=== PATIENT | female | born 1930 | race Caucasian/White ===

== ENCOUNTER → 2016-07-04 | Outpatient (CLI) | payer MEDICARE, BC ==
[2014-03-11 18:36] VITALS: BP 156/75
[~2016-07-04] MED LIST: HYDROCORTISONE20 MG PO; LEVOTHROID0.075 MG PO; LUTEIN20 M1 PO; MASON NATURAL1200 MG PO; NEOMYCIN OD; OMNIPRED 10 ML10 ML OU; POLY B OD; TOPROL XL 25MG25 MG PO; UNICOMPLEX1 CAP PO; VITAMIN D31000 I1 PO; ZOLPIDEM5 MG PO
== END ==
LOC: LAB 08:23
DX: E23.6 Other disorders of pituitary gland (principal); R53.81 Other malaise

== ENCOUNTER 2017-03-11 08:39 | Observation (INO) | payer MEDICARE, BC ==
[2017-03-11] VITALS (7 sets, daily range): BP systolic 128–168; BP diastolic 67–99
[~2017-03-11] VITALS: Ht 157.5 cm; Wt 58.7 kg
[2017-03-11 10:11] LABS: BASO # 0.1 (0.02-0.10); EOS # 0.2 (0.04-0.40); EOS % 0.9 % (1.0-5.0); HEMOGLOBIN 14.1 g/dL (12.5-16.0); LYMPH# 2.2 (1.50-4.00); MEAN CELL VOLUME 87 fl (78-100); MEAN CORPUSCULAR HEMOGLOBIN 28 pg (27-31); MEAN CORPUSCULAR HGB CONC 33 g/dL (33-37); MEAN PLATELET VOLUME 8.7 fl (7.4-10.4); MONO # 0.9 (0.20-0.80); PLATELET COUNT 298 K/mm3 (130-400); RED BLOOD COUNT 4.97 M/mm3 (4.10-5.30); RED CELL DISTRIBUTION WIDTH 13.7 % (11.5-14.5); WHITE BLOOD COUNT 15.8 K/mm3 (4.8-10.8)
[2017-03-11 10:23] LABS: ALBUMIN 3.4 g/dL (3.5-5.0); BUN/CREATININE RATIO 15.9 (6.0-26.0); CALCIUM 9.2 mg/dL (8.4-10.2); POTASSIUM 3.8 mmol/L (3.6-5.0); TOTAL BILIRUBIN 0.6 mg/dL (0.2-1.3); TOTAL PROTEIN 6.3 g/dL (6.3-8.2)
[2017-03-11 10:54] LABS: NEU # 12.3 (1.40-6.50)
[2017-03-11 11:18] LABS: URINE APPEARANCE CLEAR; URINE COLOR YELLOW
[2017-03-11 11:19] LABS: URINE BILIRUBIN NEGATIVE (NEGATIVE); URINE BLOOD NEGATIVE (NEGATIVE); URINE GLUCOSE NEGATIVE (NEGATIVE); URINE KETONE NEGATIVE (NEGATIVE); URINE LEUKOCYTE ESTERASE 1+ (NEGATIVE); URINE MUCUS PRESENT (NOT PRESENT); URINE NITRATE NEGATIVE (NEGATIVE); URINE PROTEIN(semi-quant) NEGATIVE (NEGATIVE); URINE UROBILINOGEN NORMAL (NORMAL)
--- NOTE | 2017-03-11 16:23 | NUR ---
PT FULLY ALERT AND ORIENTED, AMBULATING WITH SBA TO RESTROOM AT THIS TIME, VOIDED 400CC OF CLEAR YELLOW URINE, DENIES DIZZINESS OR LIGHT HEADEDNESS AT THIS TIME, DENIES ANY FURTHER NEEDS
--- NOTE | 2017-03-11 19:10 | NUR ---
Report received from Kinsey ORTEGA. Patient resting supine in bed with bed alarm on. Call light in reach. A/O x4. Denies pain. Denies cough. Denies dizziness now or with getting up. Essentially denies any problems what so ever to this nurse. Assessment completed. States would like Ambien when 2300 V/S are taken. Bed alarm on. Call light in reach.
--- NOTE | 2017-03-11 19:50 | NUR ---
PREVENTIVE MEDICINE OFFICER asks for assist with patient in BR. States patient refusing to change out of street clothing, (jeans and shirt) into a hospital gown and also tried to refuse a gait belt with ambulation. This nurse to BR. Explained to patient reason for gait belt due to patients safety as related to fall prevention. Also asked patient if she slept in her clothing at home and patient stated "no she sleeps in her pajamas. This nurse states "well, since you don't have pajama's here, this is our pajama's, also explained that I needed her clothing removed to assess her skin. She was given the option to keep her underclothing on, in which she chose too. She intially agreed to change to a gown, then when being assisted by PREVENTIVE MEDICINE OFFICER again, raised her hand as if she was going to slap PREVENTIVE MEDICINE OFFICER. This nurse and PREVENTIVE MEDICINE OFFICER advised her not to do so, in which she replied that she was not going to. Patient is quite unhappy with this nurse and PREVENTIVE MEDICINE OFFICER. Patient eventially changed into a gown and male PREVENTIVE MEDICINE OFFICER assisted off of toiled and back into bed.
--- NOTE | 2017-03-11 23:10 | NUR ---
Up to BR with assist from male CLAM BED LABORER. Male CLAM BED LABORER assisting patient to BR. Shoved the CLAM BED LABORER out the door and wanted this nurse to assist. This nurse into assist paient with toileting. "why should I have to have a male help me when there is a female her. Female CLAM BED LABORER on staff advised to assist patient tonight with cares.
--- NOTE | 2017-03-12 00:19 | NUR ---
Resting on L side with eyes closed. Respirations even and non-labored, no signs of distress. Bed alarm on. Call light in reach.
[2017-03-12 01:03] LABS: T3 TOTAL 54 ng/dL (87-178)
[2017-03-12] MEDS ORDERED: AMLODIPINE BESYL5 MG PO (01:20)
[2017-03-12] MEDS ORDERED: SYNTHROID0.05 MG PO (01:23)
[2017-03-12] MEDS ORDERED: GOOD NEIGHBOR P20 M1 PO (01:28)
[2017-03-12 02:59] VITALS: BP 165/74
--- NOTE | 2017-03-12 04:10 | NUR ---
Patient was awaken by TRIMMER LOADER for 0300 vitals. States she has been sleeping well. Stated to TRIMMER LOADER to thank this nurse because she "got some good sleep". No complaints of pain or dizziness this shift. Continues resting now with eyes close. Bed alarm on. Call light in reach.
--- NOTE | 2017-03-12 05:04 | NUR ---
Requests Synthoid now so that she can have some toast to eat. States she will is hungry and will start to get a headache if she doesn't eat a little something. B/P is high with lying and sitting but drops significantly with standing. Denies dizziness with standing. No blacking out or S/S when ASSEMBLER [employer]ES stood for B/P. Denies blurred or dbl vision. Denies pain at this time.
[2017-03-12 06:22] VITALS: BP 190/83
[2017-03-12 06:23] VITALS: BP 190/83
[2017-03-12 06:37] LABS: HEMATOCRIT 41.9 % (37.0-47.0); MEAN CELL VOLUME 85 fl (78-100); MEAN CORPUSCULAR HEMOGLOBIN 28 pg (27-31); MEAN CORPUSCULAR HGB CONC 33 g/dL (33-37); MEAN PLATELET VOLUME 9.1 fl (7.4-10.4); PLATELET COUNT 312 K/mm3 (130-400); RED BLOOD COUNT 4.93 M/mm3 (4.10-5.30); RED CELL DISTRIBUTION WIDTH 13.6 % (11.5-14.5); WHITE BLOOD COUNT 17.7 K/mm3 (4.8-10.8)
[2017-03-12 06:46] LABS: LYMPHOCYTE 17 % (20-51); MONOCYTE 3 % (3-10); NEUTROPHILS 80 % (42-75)
--- NOTE | 2017-03-12 07:02 | NUR ---
Report to Lyubov ORTEGA.
[2017-03-12 07:03] LABS: BUN/CREATININE RATIO 18.1 (6.0-26.0); CALCIUM 9.2 mg/dL (8.4-10.2); POTASSIUM 3.6 mmol/L (3.6-5.0)
--- NOTE | 2017-03-12 08:00 | NUR ---
PT AWAKE, FULLY ALERT AND ORIENTED, GETS OUT OF BED AND WALKS TO THE BATHROOM INDEPENDENTLY WITH SBA AND GAIT BELT ON, PT NO LONGER REFUSING GAIT BELT AT THIS TIME, PT DENIES DIZZINESS, DENIES ANY PAINS, REQUESTS ROOM PRIVILEGES BUT IS EDUCATED ON ORTHOSTATIC HYPOTENSION AND THE RISK OF FALLING, NO ROOM PRIVILEGES GRANTED AT THIS TIME, COMPLEX ASSESSMENT COMPLETED AND CHARTED, PT UP IN CHAIR UPON EXITING ROOM, CALL LIGHT WITHIN REACH
--- NOTE | 2017-03-12 08:30 | NUR ---
TENISHA BELCHER AT PATIENTS BEDSIDE DISCUSSING LAB RESULTS AND CURRENT HEALTH STATUS, PT REPORTS ONLY DRINKING ABOUT "A CUP OF COFFEE" DAILY AND IS ENCOURAGED TO DRINK UP TO 2 PINTS DAILY, PT STATES SHE IS NOT DRINKING NEARLY THIS MUCH AT HOME, DISCUSS POSSIBLE MEDICATION CHANGES WELL TO HELP WTIH ORTHOSTATIC BLOOD PRESSURES, TSH LEVEL STILL PENDING, NO FURTHER ORDERS AT THIS TIME, WILL DISCUSS PLAN OF CARE AND LENGTH OF STAY PENDING INSURANCE LATER IN THE DAY
--- NOTE | 2017-03-12 09:20 | NUR ---
PT'S NORVASC DECREASED, LEVOTHYROXINE INCREASED, AND FLORICEF ADDED AT THIS TIME, WILL CONTINUE TO MONITOR PATIENT FOR SYMPTOMS OF ORTHOSTATIC HYPOTENSION, PT IS ON TELEMETRY AND STABLE
--- NOTE | 2017-03-12 10:30 | NUR ---
JUSTIN WITH PT RINGS CALL LIGHT TO HAVE THIS NURSE ASSESS PT'S CURRENT STATUS, PT IS IN CHAIR, APPEARS LETHARGIC, ANSWERING QUESTIONS APPROPRIATELY, STATES HE JUST STILL FEELS "SO TIRED," GIBSON AWARE OF THIS EPISODE, DURING THERAPY PT'S SITTING BP:102/70, UPON STANDING BP WAS 100/59 AND HR 100, JUSTIN STATES PT STOPPED TALKING TO HER AND NEEDED TO SIT BACK DOWN, WILL ADDRESS THIS ISSUE FURTHER WITH GIBSON AT THIS TIME
--- NOTE | 2017-03-12 10:45 | NUR ---
PT RINGS CALL LIGHT APPROPRIATELY, A/O X4 BUT LETHARGIC, ASKS TO WALK TO BED AND GO BACK TO SLEEP, PT IS ASSISTED USING GAIT BELT AND WALKER BACK TO BED, STRONG STEADY GAIT NOTED, DENIES DIZZINESS OR PAIN, PT RESTING IN BED WITH CALL LIGHT WITHIN REACH AND BED ALARM ON WHEN INTEGRATION ANALYST EXITED ROOM, GIBSON AWARE OF THIS SITUATION
[2017-03-12 11:19] VITALS: BP 158/73
[2017-03-12 14:54] VITALS: BP 129/57
--- NOTE | 2017-03-12 16:27 | NUR ---
PT FULLY ALERT AND ORIENTED, DENIES PAIN, DENIES DIZZINESS, ABLE TO AMBULATE WITH SBA SAFELY AT THIS TIME, STEADY GAIT NOTED, PT ASSISTED TO CHAIR AND RELAXING WITH CALL LIGHT WITHIN REACH UPON EXITING ROOM
--- NOTE | 2017-03-12 16:50 | NUR ---
PER EDNA MALDONADO PT IS GOING TO BE CHANGED TO ACUTE STATUS AT THIS TIME
[2017-03-12] MEDS ORDERED: NORVASC2.5 MG PO (17:15)
[2017-03-12] MEDS ORDERED: TIROSINT75 MC1 PO (17:15)
[2017-03-12] MEDS ORDERED: CORTEF20 MG PO (17:16)
[2017-03-14] MEDS ORDERED: Patient's Own Medica OP (13:56)
[2017-03-14] MEDS ORDERED: FLORINEF 00.1 MG/TAB PO (13:56)
[2017-03-14] MEDS ORDERED: HYDROCORTISONE20 MG PO ×2 (13:56)
[2017-03-14] MEDS ORDERED: KLOR-CON 1010 MEQ PO (13:56)
== END 2017-03-12 16:50 | disposition other institution (70) ==
LOC: MED/SURG 08:39
PROVIDERS: ADMIT Nurse Practitioner Family
DX: E23.6 Other disorders of pituitary gland (principal); I95.1 Orthostatic hypotension; E86.0 Dehydration; I10 Essential (primary) hypertension; E78.2 Mixed hyperlipidemia; K21.9 Gastro-esophageal reflux disease without esophagitis; M54.5 Low back pain; Z88.2 Allergy status to sulfonamides; Z91.041 Radiographic dye allergy status
CPT/HCPCS: G0378; G0379; J2930; J7030

== ENCOUNTER → 2017-03-19 | Outpatient (CLI) | payer MEDICARE, BC ==
[2017-03-17 11:18] VITALS: BP 165/78
[~2017-03-19] MED LIST changes: +AMLODIPINE BESYL5 MG PO; +CORTEF20 MG PO; +FLORINEF 00.1 MG/TAB PO; +GOOD NEIGHBOR P20 M1 PO; +KLOR-CON 1010 MEQ PO; +KLOR-CON SPRIN10 MEQ PO; +LEVOTHYROXIN0.075 MG PO; +NORVASC2.5 MG PO; +Patient's Own Medica OP; +SYNTHROID0.05 MG PO; +TIROSINT75 MC1 PO
[2017-03-19 13:29] LABS: BUN/CREATININE RATIO 15.5 (6.0-26.0); CALCIUM 9.2 mg/dL (8.4-10.2); POTASSIUM 4.4 mmol/L (3.6-5.0)
== END ==
LOC: LAB 12:56
PROVIDERS: Nurse Practitioner Family
DX: E87.6 Hypokalemia (principal); E23.0 Hypopituitarism

== ENCOUNTER → 2017-03-26 | Outpatient (CLI) | payer MEDICARE, BC ==
[2017-03-17 11:18] VITALS: BP 165/78
[2017-03-26 14:01] LABS: BUN/CREATININE RATIO 15.7 (6.0-26.0); POTASSIUM 4.5 mmol/L (3.6-5.0)
== END ==
LOC: LAB 13:35
PROVIDERS: Nurse Practitioner Family
DX: Z86.39 Personal history of other endocrine, nutritional and metabolic disease (principal); Z88.2 Allergy status to sulfonamides; Z91.041 Radiographic dye allergy status

== ENCOUNTER → 2017-04-09 | Outpatient (CLI) | payer MEDICARE, BC ==
[2017-03-17 11:18] VITALS: BP 165/78
[2017-04-09 16:49] LABS: EOS % 0.4 % (1.0-5.0); HEMATOCRIT 41.9 % (37.0-47.0); HEMOGLOBIN 13.3 g/dL (12.5-16.0); LYMPH# 2.1 (1.50-4.00); MEAN CELL VOLUME 88 fl (78-100); MEAN CORPUSCULAR HEMOGLOBIN 28 pg (27-31); MEAN CORPUSCULAR HGB CONC 32 g/dL (33-37); MEAN PLATELET VOLUME 9.3 fl (7.4-10.4); MONO # 0.5 (0.20-0.80); NEU # 7.4 (1.40-6.50); PLATELET COUNT 300 K/mm3 (130-400); RED BLOOD COUNT 4.79 M/mm3 (4.10-5.30); RED CELL DISTRIBUTION WIDTH 14.3 % (11.5-14.5); WHITE BLOOD COUNT 10.1 K/mm3 (4.8-10.8)
[2017-04-09 16:53] LABS: ALBUMIN 3.9 g/dL (3.5-5.0); BUN/CREATININE RATIO 15.8 (6.0-26.0); CALCIUM 9.3 mg/dL (8.4-10.2); POTASSIUM 3.8 mmol/L (3.6-5.0); TOTAL BILIRUBIN 0.2 mg/dL (0.2-1.3); TOTAL PROTEIN 6.8 g/dL (6.3-8.2)
[2017-04-10 00:37] LABS: FOLATE (FOLIC ACID) 16.1 ng/mL (7.0-31.4)
== END ==
LOC: LAB 15:45
PROVIDERS: Nurse Practitioner Family
DX: R20.2 Paresthesia of skin (principal); M79.661 Pain in right lower leg; R23.8 Other skin changes

== ENCOUNTER → 2017-06-05 | Outpatient (CLI) | payer MEDICARE, BC ==
[2017-03-17 11:18] VITALS: BP 165/78
== END ==
LOC: LAB 09:36
DX: E23.0 Hypopituitarism (principal); E03.8 Other specified hypothyroidism; E23.6 Other disorders of pituitary gland; Z88.2 Allergy status to sulfonamides; Z91.041 Radiographic dye allergy status

== ENCOUNTER → 2017-06-30 | Outpatient (CLI) | payer MEDICARE, BC ==
[2017-03-17 11:18] VITALS: BP 165/78
== END ==
LOC: LAB 11:23
DX: E23.0 Hypopituitarism (principal); E03.8 Other specified hypothyroidism

== ENCOUNTER → 2017-07-10 | Outpatient (CLI) | payer MEDICARE, BC ==
[2017-03-17 11:18] VITALS: BP 165/78
[2017-07-10 11:44] LABS: ALBUMIN 3.9 g/dL (3.5-5.0); BUN/CREATININE RATIO 16.5 (6.0-26.0); CALCIUM 9.6 mg/dL (8.4-10.2); POTASSIUM 4.5 mmol/L (3.6-5.0); TOTAL BILIRUBIN 0.3 mg/dL (0.2-1.3); TOTAL PROTEIN 7.1 g/dL (6.3-8.2)
== END ==
LOC: LAB 11:17
PROVIDERS: Nurse Practitioner Family
DX: R51 Headache (principal); E23.6 Other disorders of pituitary gland; G90.9 Disorder of the autonomic nervous system, unspecified

== ENCOUNTER → 2017-09-16 | Outpatient (CLI) | payer MEDICARE, BC ==
[2017-03-17 11:18] VITALS: BP 165/78
== END ==
LOC: LAB 11:17
PROVIDERS: Internal Medicine Endocrinology, Diabetes & Metabolism
DX: E03.8 Other specified hypothyroidism (principal)